=== PATIENT | male | born 1970 | race Caucasian/White ===

== ENCOUNTER → 2016-11-13 | Outpatient (CLI) | payer BC ==
[~2016-11-13] MED LIST: BACTRIM DS 8001 TAB PO; NORCO 325 MG-51 TAB PO; ZOFRAN 4MG T4 MG/TAB PO
== END ==
LOC: MHCPAIN 11:35
DX: G89.29 Other chronic pain (principal); M47.817 Spondylosis without myelopathy or radiculopathy, lumbosacral region; M54.16 Radiculopathy, lumbar region; M53.3 Sacrococcygeal disorders, not elsewhere classified; M96.1 Postlaminectomy syndrome, not elsewhere classified; F12.288 Cannabis dependence with other cannabis-induced disorder
CPT/HCPCS: G0463

== ENCOUNTER 2017-01-01 08:30 | Outpatient (RCR) | payer BC | END 2017-01-01 11:41 | LOC: WSPT 08:30 | DX: M96.1 Postlaminectomy syndrome, not elsewhere classified (principal); M54.9 Dorsalgia, unspecified; G89.29 Other chronic pain | CPT/HCPCS: G0283-GP ==

== ENCOUNTER → 2017-02-13 | Outpatient (CLI) | payer BC | LOC: MHCPAIN 09:54 | DX: G89.29 Other chronic pain (principal); M47.27 Other spondylosis with radiculopathy, lumbosacral region; M53.3 Sacrococcygeal disorders, not elsewhere classified; M96.1 Postlaminectomy syndrome, not elsewhere classified; F17.220 Nicotine dependence, chewing tobacco, uncomplicated | CPT/HCPCS: G0463 ==

== ENCOUNTER → 2017-04-29 | Outpatient (CLI) | payer BC | LOC: MHCPAIN 09:36 | DX: G89.29 Other chronic pain (principal); M47.27 Other spondylosis with radiculopathy, lumbosacral region; M96.1 Postlaminectomy syndrome, not elsewhere classified; F17.220 Nicotine dependence, chewing tobacco, uncomplicated | CPT/HCPCS: G0463 ==

== ENCOUNTER → 2017-05-07 | Outpatient (CLI) | payer BC | LOC: MHCPAIN 08:55 | DX: G89.29 Other chronic pain (principal); M47.817 Spondylosis without myelopathy or radiculopathy, lumbosacral region; M96.1 Postlaminectomy syndrome, not elsewhere classified; M79.2 Neuralgia and neuritis, unspecified; F17.220 Nicotine dependence, chewing tobacco, uncomplicated | CPT/HCPCS: G0463 ==

== ENCOUNTER → 2022-02-22 | Day surgery (SDC) | payer BC ==
[~2022-02-22] VITALS: Ht 177.8 cm; Wt 80.3 kg
[~2022-02-22] MED LIST changes: +COZAAR 25MG25 MG/TAB PO; +HCTZ 25MG TAB25 MG PO; +LIPITOR 10MG10 MG PO; +NEURONTIN300 MG/CAP PO
[2022-02-22 15:27] VITALS: BP 118/88; PULSE 75; TEMP 97.8
[2022-02-22 16:05] VITALS: BP 131/89; PULSE 72
--- NOTE | 2022-02-22 16:05 | NUR ---
PATIENT TO RECOVERY BAY 7 POST PROCEDURE. PATIENT AMBULATES TO CHAIR. GIVEN WARM BLANKET. VITAL SIGNS TAKEN. GIVEN WATER AND MUFFIN.
[2022-02-22 16:15] VITALS: BP 124/89; PULSE 80
[2022-02-22 16:30] VITALS: BP 119/80; PULSE 75
--- NOTE | 2022-02-22 16:45 | NUR ---
PATIENT CHANGES OUT OF GOWN INTO STREET CLOTHES. DISMISSAL INSTRUCTION EXPLAINED AND WRITTEN COPIES PROVIDED TO PATIENT. DENIES QUESTIONS. DISMISSED VIA WHEELCHAIR BY RN TO WAITING FIELD SUPPORT REP.
== END ==
LOC: SDCO 14:53
DX: K62.6 Ulcer of anus and rectum (principal); K92.1 Melena; K64.8 Other hemorrhoids; F17.220 Nicotine dependence, chewing tobacco, uncomplicated; Z28.310 Unvaccinated for COVID-19; Z28.9 Immunization not carried out for unspecified reason
CPT/HCPCS: 32152; 32854